=== PATIENT | female | born 2000 | race African-American/Black ===

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

== ENCOUNTER 2025-04-02 16:54 | Emergency (ER) | payer MEDICAID ==
[~2025-04-02] VITALS: Ht 162.6 cm; Wt 109.0 kg
[2025-04-02 16:57] VITALS: BP 134/96; PULSE 92; RESP 16; TEMP 36.8; O2SAT 99
[2025-04-02 17:09] VITALS: O2SAT 99
== END 2025-04-02 20:45 | disposition left against medical advice (07) ==
LOC: ER 17:22
DX: R07.0 Pain in throat (principal); R51.9 Headache, unspecified; Z53.21 Procedure and treatment not carried out due to patient leaving prior to being seen by health care provider
CPT/HCPCS: 99281